=== PATIENT | male | born 1970 | race Caucasian/White ===

== ENCOUNTER 2019-10-17 08:53 | Day surgery (SDC) | payer BC, OTHER ==
[2019-10-13 10:19] VITALS: BMI 28.0
[2019-10-17] MEDS ORDERED: LIDOCAINE HCL/PF 2% SDV 5ML VIAL ONE (09:18)
[2019-10-17] MEDS ORDERED: PROPOFOL 20 ML ONE ×2 (09:18)
[2019-10-17 11:24] VITALS: TEMP 97.7
[2019-10-17 11:30] VITALS: BP 103/61; PULSE 66
--- NOTE | 2019-10-19 12:49 | PATH ---
Surgical Pathology Report Patient Name: PELON CARRILLO [facility]. Rec. #: [id number] /Age/Gender: 1970 (Age: 49) / M Account: [id number] Location: [facility] Taken: 10/17/2019 Received: 10/17/2019 Reported: 10/19/2019 Physicians: Jaziel Patricio M.D. Specimen(s) Received A: SECOND PORTION OF DUODENUM B: ANTRUM Clinical History GERD Postoperative diagnosis: Gastritis Final Diagnosis A. SECOND PORTION OF DUODENUM, BIOPSY: DUODENAL MUCOSA WITH NO PATHOLOGIC FINDINGS. B. GASTRIC ANTRUM, BIOPSY: MILD CHRONIC GASTRITIS. IMMUNOSTAIN IS NEGATIVE FOR H.PYLORI ORGANISMS. Electronically Signed Patty Jane M.D. Gross Description A. Received in formalin, labeled "biopsy second portion of duodenum" are 2 mccoy, irregular portions of soft tissue averaging 0.3 cm. in greatest dimension. The specimens are submitted in toto in one cassette. B. Received in formalin, labeled "biopsy gastric antrum" is 1 mccoy, irregular portion of soft tissue measuring 0.5 cm. in greatest dimension. The specimen is submitted in toto in one cassette. /10/18/2019 saudi/10/18/2019
== END 2019-10-17 11:05 | disposition home or self-care (01) ==
LOC: FASU-ENDO 08:53
PROVIDERS: ATTEND Internal Medicine Gastroenterology
PROC: 0DB78ZX Excision of Stomach, Pylorus, Via Natural or Artificial Opening Endoscopic, Diagnostic (ICD-10-PCS; 2019-10-17)
PROC: 0DB98ZX Excision of Duodenum, Via Natural or Artificial Opening Endoscopic, Diagnostic (ICD-10-PCS; principal; 2019-10-17 09:47)
DX: K29.50 Unspecified chronic gastritis without bleeding (principal)
CPT/HCPCS: 88305-TC; 88342-TC

== ENCOUNTER 2021-09-12 07:41 | Day surgery (SDC) | payer BC ==
[2021-09-10 11:25] VITALS: BMI 27.6
[2021-09-12 07:56] VITALS: TEMP 98.2
[2021-09-12] MEDS ORDERED: PROPOFOL 20 ML ONE ×4 (08:04)
[2021-09-12 09:23] VITALS: PULSE 71
[2021-09-12 09:51] VITALS: BP 110/65
== END 2021-09-12 10:05 | disposition home or self-care (01) ==
LOC: FASU-ENDO 07:41
PROVIDERS: ATTEND Internal Medicine Gastroenterology
PROC: 0DJD8ZZ Inspection of Lower Intestinal Tract, Via Natural or Artificial Opening Endoscopic (ICD-10-PCS; principal; 2021-09-12 09:00)
DX: Z12.11 Encounter for screening for malignant neoplasm of colon (principal); Z83.71 Family history of colonic polyps